=== PATIENT | male | born 1960 | race Caucasian/White ===

== ENCOUNTER 2017-12-22 09:57 | Inpatient (IN) | payer OTHER ==
[2017-12-18 12:18] LABS: BASOPHILS % (AUTO) 0.5 % (0-1); EOSINOPHILS # (AUTO) 0.1 X10'3 (0-0.9); EOSINOPHILS % (AUTO) 1.2 % (0-6); LYMPHOCYTES # (AUTO) 1.5 X10'3 (1.1-4.8); LYMPHOCYTES % (AUTO) 22.9 % (21-51); MEAN CORPUSCULAR HEMOGLOBIN 30.6 PG (27.0-31.0); MEAN CORPUSCULAR HGB CONC 34.1 % (33.0-36.5); MEAN CORPUSCULAR VOLUME 89.5 FL (78-98); MEAN PLATELET VOLUME 7.1 FL (7.4-10.4); MONOCYTES # (AUTO) 0.4 X10'3 (0-0.9); MONOCYTES % (AUTO) 6.3 % (2-12); NEUTROPHILS # (AUTO) 4.5 X10'3 (1.8-7.7); NEUTROPHILS % (AUTO) 69.1 % (42-75); PRE OP HEMATOCRIT 46.5 % (42.0-52.0); PRE OP HEMOGLOBIN 15.9 g/dL (14.0-17.9); PRE OP PLATELET COUNT 257 X10'3 (140-440); RED BLOOD COUNT 5.19 X10'6 (4.70-6.10); RED CELL DISTRIBUTION WIDTH 12.6 % (11.5-14.5)
[2017-12-18 12:19] LABS: CLARITY,URINE Clear (Clear); COLOR,URINE Yellow (Yellow); GLUCOSE, URINE Negative (Neg); KETONES,URINE Negative (Neg); LEUKOCYTE ESTERASE ,URINE Negative (Neg); NITRITES, URINE Negative (Neg); OCCULT BLOOD,URINE Negative (Neg); PROTEIN,URINE Negative (Neg)
[2017-12-18 12:22] LABS: UA COLLECTION TYPE CLN CATCH MIDSTREAM
[2017-12-18 12:29] LABS: PRE OP PROTIME 10.1 SECONDS (9.0-12.0)
[2017-12-18 12:37] LABS: ALBUMIN 4.2 G/DL (3.4-5.0); ALBUMIN/GLOBULIN RATIO 1.2 (1.1-1.5); ALKALINE PHOSPHATASE 58 IU/L (46-116); BLOOD UREA NITROGEN 16 MG/DL (7-18); BUN/CREATININE RATIO 13.3 (5.4-32.0); CALCIUM 9.4 MG/DL (8.5-10.1); CHLORIDE 108 MMOL/L (99-107); PRE OP ALT 33 U/L (30-65); PRE OP ANION GAP 9 (8-16); PRE OP AST 13 U/L (10-37); PRE OP BILIRUB, TOTAL 0.9 MG/DL (0.0-1.0); PRE OP GLUCOSE 89 MG/DL (70-104); PRE OP POTASSIUM 4.1 MMOL/L (3.4-5.1); PRE OP SODIUM 143 MMOL/L (135-145); TOTAL CARBON DIOXIDE 26.2 MMOL/L (24-32); TOTAL PROTEIN 7.7 G/DL (6.4-8.2); eGFR 62 ML/MIN
[2017-12-22] VITALS (16 sets, daily range): BP systolic 94–136; BP diastolic 59–96
[~2017-12-22] VITALS: Ht 182.9 cm; Wt 111.2 kg
[2017-12-22] MEDS: cefazolin/dext.iso 2gm/50ml 50 ML IV ONE ×2 (05:30→10:41)
[~2017-12-22 09:57] MED LIST: ATOR20TA PO; LISI-600 PO; acetaminophen 325mg tablet PO ONE; famotidine 20mg tablet PO ONE; gabapentin 300mg capsule PO ONE; oxyCODONE SR 10mg (sust. release) tab PO ONE; ringers solution, lacted 1,000 ML IV SCH; tranexamic acid inj. 1,000 MG in normal saline 100ml IV soln 90 ML IV ONE
[2017-12-22] MEDS ORDERED: ROPIVAcaine 0.5% (5mg/ml) 30ml vial ONE ×2 (10:53→10:57)
[2017-12-22] MEDS ORDERED: tetracaine 1% (10mg/ml) pres. free inj. ONE (10:57)
[2017-12-22] MEDS ORDERED: MORPHINE SULFATE/PF 0.5 MG/ML 10ML AMPUL ONE (11:19)
[2017-12-22] MEDS ORDERED: MIDAZolam 1mg/ml 10ml vial ONE (11:19)
[2017-12-22] MEDS ORDERED: fentaNYL/PF 50MCG/1 ML 2ML syringe ONE (11:19)
[2017-12-22] MEDS ORDERED: propofol inj 20 ML IV ONE ×2 (11:51→11:52)
[2017-12-22] MEDS ORDERED: bacitracin inj 150,000 UNIT in sodium chloride irrig. sol 3,000 ML IR ONE (12:00)
[2017-12-22] MEDS ORDERED: meperidine/PF 25mg/ml syringe IV PRN ×3 (12:25)
[2017-12-22] MEDS ORDERED: diphenhydrAMINE 50 mg/ml inj IV PRN (12:25)
[2017-12-22] MEDS ORDERED: naloxone 2mg/2ml inj 2 MG in normal saline 500ml IV soln 500 ML IV PRN (12:25)
[2017-12-22] MEDS ORDERED: ringers solution, lacted 1,000 ML IV SCH (12:25)
[2017-12-22] MEDS ORDERED: ondansetron/PF 4mg/2ml inj IV PRN ×3 (12:25→13:55)
[2017-12-22] MEDS ORDERED: proCHLORperazine 10 MG/2 ml inj IV PRN (12:25)
[2017-12-22] MEDS ORDERED: morphine 2 MG/ML inj. syringe IV PRN ×2 (12:25)
[2017-12-22] MEDS ORDERED: ceFAZolin 1000mg inj ONE (13:11)
[2017-12-22] MEDS ORDERED: bisacodyl 10mg suppository rectal RC PRN (13:55)
[2017-12-22] MEDS ORDERED: magnesium hydroxide 30ml (MOM) UD suspension PO PRN (13:55)
[2017-12-22] MEDS ORDERED: HYDROmorphone 1 mg/ml syringe IV PRN (13:55)
[2017-12-22] MEDS ORDERED: diphenhydrAMINE 25mg capsule PO PRN ×2 (13:55)
[2017-12-22] MEDS ORDERED: acetaminophen 325mg tablet PO PRN (13:55)
[2017-12-22] MEDS: acetaminophen 325mg tablet PO SCH ×2 (14:00→20:28)
[2017-12-22] MEDS ORDERED: cloNIDine hcl/PF 100mcg/ml inj ONE (14:18)
[2017-12-22] MEDS: potassium cl 20mEq in 1/2 NS 1,000 ML IV SCH (16:04)
[2017-12-22] MEDS: cefazolin 1gm/NS 100mL 100 ML IV SCH (16:06)
[2017-12-22] MEDS: ascorbic acid 500mg tablet PO SCH (20:26)
[2017-12-22] MEDS: sennosides 8.6mg tablet PO SCH (20:26)
[2017-12-22] MEDS: gabapentin 300mg capsule PO SCH (20:26)
[2017-12-22] MEDS: celeCOXIB 100mg capsule PO SCH (20:26)
[2017-12-22] MEDS: oxyCODONE IR 5mg (immed. release) tablet PO PRN (20:53)
[2017-12-23] MEDS: potassium cl 20mEq in 1/2 NS 1,000 ML IV SCH ×4 (00:03→21:52)
[2017-12-23] MEDS: cefazolin 1gm/NS 100mL 100 ML IV SCH (00:04)
[2017-12-23 02:00] VITALS: BP 93/50
[2017-12-23] MEDS: acetaminophen 325mg tablet PO SCH ×5 (02:12→19:40)
[2017-12-23] MEDS: oxyCODONE IR 5mg (immed. release) tablet PO PRN ×4 (05:26→19:40)
[2017-12-23 06:00] VITALS: BP 95/62
[2017-12-23 06:04] LABS: BASOPHILS % (AUTO) 0.3 % (0-1); EOSINOPHILS # (AUTO) 0.2 X10'3 (0-0.9); EOSINOPHILS % (AUTO) 2.5 % (0-6); HEMATOCRIT 35.9 % (42.0-52.0); HEMOGLOBIN 12.4 g/dl (14.0-17.9); LYMPHOCYTES # (AUTO) 1.7 X10'3 (1.1-4.8); LYMPHOCYTES % (AUTO) 21.4 % (21-51); MEAN CORPUSCULAR HEMOGLOBIN 30.9 PG (27.0-31.0); MEAN CORPUSCULAR HGB CONC 34.7 % (33.0-36.5); MEAN CORPUSCULAR VOLUME 89.2 FL (78-98); MEAN PLATELET VOLUME 7.2 FL (7.4-10.4); MONOCYTES # (AUTO) 0.7 X10'3 (0-0.9); MONOCYTES % (AUTO) 8.7 % (2-12); NEUTROPHILS # (AUTO) 5.3 X10'3 (1.8-7.7); NEUTROPHILS % (AUTO) 67.1 % (42-75); PLATELET COUNT 195 X10'3 (140-440); RED BLOOD COUNT 4.02 X10'6 (4.70-6.10); RED CELL DISTRIBUTION WIDTH 12.7 % (11.5-14.5); WHITE BLOOD COUNT 7.9 X10'3 (4.5-11.0)
[2017-12-23 06:08] LABS: INR 1.1 INR; PROTHROMBIN TIME 11.3 SECONDS (9.0-12.0)
[2017-12-23 06:50] LABS: ANION GAP 6 (8-16); CHLORIDE 106 MMOL/L (99-107); POTASSIUM 4.7 MMOL/L (3.5-5.1); SODIUM 140 MMOL/L (135-145); TOTAL CARBON DIOXIDE 27.7 MMOL/L (24-32)
[2017-12-23] MEDS: atorvastatin 20mg tablet PO SCH (08:44)
[2017-12-23] MEDS: gabapentin 300mg capsule PO SCH ×3 (08:44→19:39)
[2017-12-23] MEDS: lisinopril 20mg tablet PO SCH (08:44)
[2017-12-23] MEDS: ascorbic acid 500mg tablet PO SCH ×2 (08:44→19:40)
[2017-12-23] MEDS: celeCOXIB 100mg capsule PO SCH ×2 (08:44→19:39)
[2017-12-23] MEDS: multivitamins, therapeutics tablet PO SCH (08:44)
[2017-12-23 10:00] VITALS: BP 107/63
[2017-12-23] MEDS ORDERED: warfarin 10mg tablet PO ONE (10:00)
[2017-12-23 14:00] VITALS: BP 86/58
[2017-12-23] MEDS: Protein Shake (high protein) 240ml (8oz) cup PO SCH (18:00)
[2017-12-23 18:10] VITALS: BP 101/60
[2017-12-23] MEDS: sennosides 8.6mg tablet PO SCH (19:39)
[2017-12-23 22:10] VITALS: BP 110/56
[2017-12-24] MEDS: acetaminophen 325mg tablet PO SCH ×2 (02:00→08:46)
[2017-12-24] MEDS: oxyCODONE IR 5mg (immed. release) tablet PO PRN ×3 (05:03→20:05)
[2017-12-24] MEDS: potassium cl 20mEq in 1/2 NS 1,000 ML IV SCH (05:52)
[2017-12-24 06:00] VITALS: BP 124/75
[2017-12-24 06:12] LABS: BASOPHILS % (AUTO) 0.4 % (0-1); EOSINOPHILS # (AUTO) 0.2 X10'3 (0-0.9); EOSINOPHILS % (AUTO) 2.6 % (0-6); HEMATOCRIT 34.9 % (42.0-52.0); HEMOGLOBIN 12.2 g/dl (14.0-17.9); LYMPHOCYTES # (AUTO) 1.1 X10'3 (1.1-4.8); LYMPHOCYTES % (AUTO) 15.2 % (21-51); MEAN CORPUSCULAR HEMOGLOBIN 31.3 PG (27.0-31.0); MEAN CORPUSCULAR HGB CONC 35.1 % (33.0-36.5); MEAN CORPUSCULAR VOLUME 89.3 FL (78-98); MEAN PLATELET VOLUME 7.2 FL (7.4-10.4); MONOCYTES # (AUTO) 0.6 X10'3 (0-0.9); MONOCYTES % (AUTO) 8.7 % (2-12); NEUTROPHILS # (AUTO) 5.4 X10'3 (1.8-7.7); NEUTROPHILS % (AUTO) 73.1 % (42-75); PLATELET COUNT 192 X10'3 (140-440); RED BLOOD COUNT 3.91 X10'6 (4.70-6.10); RED CELL DISTRIBUTION WIDTH 12.6 % (11.5-14.5); WHITE BLOOD COUNT 7.4 X10'3 (4.5-11.0)
[2017-12-24 06:21] LABS: INR 1.2 INR; PROTHROMBIN TIME 12.7 SECONDS (9.0-12.0)
[2017-12-24] MEDS: lisinopril 20mg tablet PO SCH (08:00)
[2017-12-24] MEDS: ascorbic acid 500mg tablet PO SCH ×2 (08:44→20:05)
[2017-12-24] MEDS: gabapentin 300mg capsule PO SCH ×3 (08:44→20:04)
[2017-12-24] MEDS: atorvastatin 20mg tablet PO SCH (08:44)
[2017-12-24] MEDS: multivitamins, therapeutics tablet PO SCH (08:44)
[2017-12-24] MEDS: celeCOXIB 100mg capsule PO SCH ×2 (08:50→20:05)
[2017-12-24] MEDS ORDERED: warfarin 10mg tablet PO ONE (10:00)
[2017-12-24] MEDS: Protein Shake (high protein) 240ml (8oz) cup PO SCH ×3 (12:49→18:00)
[2017-12-24] MEDS ORDERED: acetaminophen 325mg tablet PO PRN (13:55)
[2017-12-24 14:00] VITALS: BP 99/58
[2017-12-24 18:00] VITALS: BP 123/71
[2017-12-24] MEDS: sennosides 8.6mg tablet PO SCH (20:05)
[2017-12-24 20:07] VITALS: BP 120/70
[2017-12-24 22:00] VITALS: BP 107/70
[2017-12-25 06:00] VITALS: BP 102/62
[2017-12-25 06:16] LABS: BASOPHILS % (AUTO) 0.3 % (0-1); EOSINOPHILS # (AUTO) 0.3 X10'3 (0-0.9); EOSINOPHILS % (AUTO) 3.2 % (0-6); HEMOGLOBIN 12.4 g/dl (14.0-17.9); LYMPHOCYTES # (AUTO) 1.7 X10'3 (1.1-4.8); LYMPHOCYTES % (AUTO) 19.6 % (21-51); MEAN CORPUSCULAR HEMOGLOBIN 31.4 PG (27.0-31.0); MEAN CORPUSCULAR HGB CONC 35.3 % (33.0-36.5); MEAN CORPUSCULAR VOLUME 88.8 FL (78-98); MEAN PLATELET VOLUME 7.4 FL (7.4-10.4); MONOCYTES # (AUTO) 0.7 X10'3 (0-0.9); MONOCYTES % (AUTO) 8.4 % (2-12); NEUTROPHILS # (AUTO) 5.9 X10'3 (1.8-7.7); NEUTROPHILS % (AUTO) 68.5 % (42-75); PLATELET COUNT 207 X10'3 (140-440); RED BLOOD COUNT 3.95 X10'6 (4.70-6.10); RED CELL DISTRIBUTION WIDTH 12.8 % (11.5-14.5); WHITE BLOOD COUNT 8.6 X10'3 (4.5-11.0)
[2017-12-25 06:27] LABS: INR 1.3 INR
[2017-12-25] MEDS ORDERED: ASPI-1264 PO (07:32)
[2017-12-25] MEDS: gabapentin 300mg capsule PO SCH (07:39)
[2017-12-25] MEDS: atorvastatin 20mg tablet PO SCH (07:39)
[2017-12-25] MEDS: celeCOXIB 100mg capsule PO SCH (07:39)
[2017-12-25] MEDS: multivitamins, therapeutics tablet PO SCH (07:39)
[2017-12-25] MEDS: ascorbic acid 500mg tablet PO SCH (07:39)
[2017-12-25] MEDS: oxyCODONE IR 5mg (immed. release) tablet PO PRN (07:43)
[2017-12-25] MEDS: lisinopril 20mg tablet PO SCH (07:45)
[2017-12-25] MEDS: Protein Shake (high protein) 240ml (8oz) cup PO SCH (08:00)
[2017-12-25 10:00] VITALS: BP 102/64
[2017-12-25] MEDS ORDERED: warfarin 7.5mg tablet PO ONE (10:00)
== END 2017-12-25 10:45 | disposition home or self-care (01) | DRG 470 ==
LOC: PAS IN 09:57 → EDSTATUS 13:00 → ORTHO 4S 15:25
PROVIDERS: ADMIT Specialist; ATTEND Specialist
PROC: 3E0T3BZ Introduction of Anesthetic Agent into Peripheral Nerves and Plexi, Percutaneous Approach (ICD-10-PCS; 2017-12-22)
PROC: 0SRC0J9 Replacement of Right Knee Joint with Synthetic Substitute, Cemented, Open Approach (ICD-10-PCS; principal; 2017-12-22 11:14)
DX: M17.11 Unilateral primary osteoarthritis, right knee (principal); D62 Acute posthemorrhagic anemia; I10 Essential (primary) hypertension; E78.5 Hyperlipidemia, unspecified; Z79.899 Other long term (current) drug therapy
CPT/HCPCS: 36415; 73560; 80051; 80053; 81003; 85025; 85610; 85730; 87070; 97110; 97116; 97162; 97530; A6449; A6455; A7000; C1713; C1758; C1776; J0690; J0735; J2250; J2274; J2405; J2704; J2795; J3010; J7030; J7120; Q0163